=== PATIENT | male | born 1980 | race Caucasian/White ===

== ENCOUNTER 2016-11-21 13:47 | Emergency (ER) | payer OTHER ==
[~2016-11-21] VITALS: Ht 172.7 cm; Wt 68.0 kg
[2016-11-21 13:57] VITALS: Ht 172.7 cm; Wt 68.0 kg
[2016-11-21 14:28] LABS: BASO % 0.2 %; BASO ABS # 0.03 K/uL (0-0.2); COMPLETE YES; EOS % 1.8 %; HEMATOCRIT 43.3 % (42-52); IG% 0.5 %; LYMPH % 12.6 %; LYMPH ABS # 1.55 K/uL (1.2-3.4); MEAN CELL VOLUME 89.3 fL (80-100); MEAN CORPUSCULAR HEMOGLOBIN 31.8 pg (25-34); MEAN CORPUSCULAR HGB CONC 35.6 g/dl (32-36); MEAN PLATELET VOLUME 9.2 fL (7.4-10.4); MONO % 11.1 %; NEUT % 73.8 %; PLATELET COUNT 202 K/uL (130-400); RED BLOOD COUNT 4.85 M/uL (4.7-6.1); WHITE BLOOD COUNT 12.26 K/uL (4.8-10.8)
[2016-11-21 14:37] LABS: PROTHROMBIN TIME (PATIENT) 10.8 SECONDS (9.0-12.0)
[2016-11-21 14:51] LABS: BUN/CREATININE RATIO 16.2 (10-20); CREATININE 0.98 mg/dl (0.60-1.40); POTASSIUM 4.1 mmol/L (3.5-5.1)
[2016-11-21 15:00] LABS: CALCIUM 8.9 mg/dl (8.5-10.1)
[2016-11-21] MEDS ORDERED: WARFARIN SOD 5 MG TAB PO STA (15:40)
[2016-11-21] MEDS ORDERED: ENOX80IN SQ (15:53)
[2016-11-21] MEDS ORDERED: WARF5TAB90 PO (15:53)
[2016-11-21] MEDS ORDERED: ENOXAPARIN 80 MG/0.8 ML SYR SQ SCH (16:15)
[2016-11-21] MEDS ORDERED: ENOXAPARIN 1 MG/KG SQ STA (16:15)
--- NOTE | 2016-11-21 16:23 | Pharmacy Progress Note ---
ED Pharmacist Progress Note Date of Service: Nov 21, 2016. Met with patient in ER to provide education on Lovenox and Warfarin therapy. Reviewed: * Lovenox injection technique (site selection, site prep, dosage prep) * Signs and symptoms of excessive anticoagulation * Used syringe disposal * Need for compliance with injections along with continued warfarin use * Need for INR testing while on warfarin, ideally within the first 3-5 days * Avoidance of high risk activities which place him at risk for injury * Avoidance of OTC medications without first consulting h or Physician * Report any new medications to your Physician * Reviewed effects of dietary vit K on warfarin therapy
[2016-11-21 16:56] VITALS: BP 107/67; PULSE 85; TEMP 37.2; O2SAT 97
--- NOTE | 2016-11-21 18:21 | EMERGENCY ROOM VISIT NOTE ---
History Report prepared by Gianna: Jovana Eli Under the Supervision of: Dr. Vel Leslie D.O. First contact with patient: 14:02 Chief Complaint: ABNORMAL LABS Stated Complaint: BLOOD CLOT History of Present Illness The patient is a 35 year old male who presents to the Emergency Room for further evaluation of abnormal ultrasound results that the patient was made aware of earlier today. The patient's PCP ordered an ultrasound which revealed a DVT in the patient's left superficial femoral, popliteal, posterior tibial, anterior tibial, and peroneal veins. He states that he started to experience left leg pain 6 days ago and he first noticed the edema 2 days ago but he is unsure of when exactly it started. He denies chest pain, shortness of breath including shortness of breath with exertion, abdominal pain, nausea, vomiting, diarrhea, hematochezia, hematuria, and tingling or numbness in his leg. The patient states that he had a hiatal hernia repaired and a cholecystectomy done on November 11 in [place] at a [facility]. He states that he had the surgery done in [place] because it was cheaper. The patient traveled to [place] via a train. The trip lasted 2 days. He is not on any blood thinners. The patient denies any previous brain surgeries, infarcts, or hemorrhages. No previous blood clots. Denies any previous head bleeds, head surgery, or darker stools, bloody stools or any other bleeding issues. Source of History: patient Onset: earlier today Position: leg (left) Quality: other (abnormal ultrasound results) Timing: worsening Associated Symptoms: No chest pain, No SOB, No nausea, No vomiting, No abdominal pain, No hematochezia, No diarrhea, No urinary symptoms (hematuria), No numbness (in left leg) Note: left leg pain Review of Systems See HPI for pertinent positives & negatives. A total of 10 systems reviewed and were otherwise negative. Past Medical & Surgical Medical Problems: (1) Asthma Surgical Problems: (1) History of cholecystectomy (2) History of repair of hiatal hernia Family History No significant family history Social History Smoking Status: Never Smoker Smokeless Tobacco Use: No Alcohol Use: none Drug Use: none Marital Status: Housing Status: lives with significant other Occupation Status: employed Current/Historical Medications Scheduled Enoxaparin (Lovenox), 70 MG SQ Q12 Warfarin Sodium (Coumadin), 1 TAB PO DAILY Allergies Coded Allergies: No Known Allergies (Unverified , 11/21/16) Physical Exam Vital Signs Date Time Temp Pulse Resp B/P (MAP) Pulse Ox O2 Delivery O2 Flow Rate FiO2 11/21/16 16:56 37.2 85 18 107/67 97 11/21/16 16:31 107/67 11/21/16 16:30 85 18 97 11/21/16 16:01 109/71 11/21/16 16:00 86 18 97 11/21/16 15:30 94 20 117/65 96 11/21/16 15:09 79 11/21/16 15:02 86 18 109/67 98 Room Air 11/21/16 15:01 109/67 11/21/16 13:57 37.2 95 18 112/76 98 Room Air Physical Exam GENERAL: alert, sitting up in bed, well appearing, well nourished, no distress, non-toxic EYE EXAM: normal conjunctiva OROPHARYNX: no exudate, no erythema, lips, buccal mucosa, and tongue normal and mucous membranes are moist NECK: supple, no nuchal rigidity, no adenopathy, non-tender LUNGS: Clear to auscultation. Normal chest wall mechanics HEART: no murmurs, S1 normal and S2 normal ABDOMEN: abdomen soft, non-tender, normo-active bowel sounds, no masses, no rebound or guarding. BACK: Back is symmetrical on inspection and there is no deformity, no midline tenderness, no CVA tenderness. SKIN: no rashes and no bruising UPPER EXTREMITIES: upper extremities are grossly normal. LOWER EXTREMITIES: Left calf larger than right, thighs equal bilaterally, DPs 2/ 4 bilaterally, gross sensations intact. NEURO EXAM: Normal sensorium Medical Decision & Procedures Laboratory Results 11/21/16 14:17 Red Blood Count 4.85, Mean Corpuscular Volume 89.3, Mean Corpuscular Hemoglobin 31.8, Mean Corpuscular Hemoglobin Concent 35.6, Mean Platelet Volume 9.2, Neutrophils (%) (Auto) 73.8, Lymphocytes (%) (Auto) 12.6, Monocytes (%) (Auto) 11.1, Eosinophils (%) (Auto) 1.8, Basophils (%) (Auto) 0.2, Neutrophils # (Auto ) 9.04, Lymphocytes # (Auto) 1.55, Monocytes # (Auto) 1.36, Eosinophils # (Auto ) 0.22, Basophils # (Auto) 0.03 11/21/16 14:17 Test 11/21/16 14:17 White Blood Count 12.26 K/uL (4.8-10.8) Red Blood Count 4.85 M/uL (4.7-6.1) Hemoglobin 15.4 g/dL (14.0-18.0) Hematocrit 43.3 % (42-52) Mean Corpuscular Volume 89.3 fL (80-100) Mean Corpuscular Hemoglobin 31.8 pg (25-34) Mean Corpuscular Hemoglobin Concent 35.6 g/dl (32-36) Platelet Count 202 K/uL (130-400) Mean Platelet Volume 9.2 fL (7.4-10.4) Neutrophils (%) (Auto) 73.8 % Lymphocytes (%) (Auto) 12.6 % Monocytes (%) (Auto) 11.1 % Eosinophils (%) (Auto) 1.8 % Basophils (%) (Auto) 0.2 % Neutrophils # (Auto) 9.04 K/uL (1.4-6.5) Lymphocytes # (Auto) 1.55 K/uL (1.2-3.4) Monocytes # (Auto) 1.36 K/uL (0.11-0.59) Eosinophils # (Auto) 0.22 K/uL (0-0.5) Basophils # (Auto) 0.03 K/uL (0-0.2) RDW Standard Deviation 41.5 fL (36.4-46.3) RDW Coefficient of Variation 12.8 % (11.5-14.5) Immature Granulocyte % (Auto) 0.5 % Immature Granulocyte # (Auto) 0.06 K/uL (0.00-0.02) Prothrombin Time 10.8 SECONDS (9.0-12.0) Prothromb Time International Ratio 1.0 (0.9-1.1) Activated Partial Thromboplast Time 26.5 SECONDS (21.0-31.0) Partial Thromboplastin Ratio 1.0 Anion Gap 4.0 mmol/L (3-11) Est Creatinine Clear Calc Drug Dose 99.3 ml/min Estimated GFR () 113.7 Estimated GFR (Non- 98.1 BUN/Creatinine Ratio 16.2 (10-20) Calcium Level 8.9 mg/dl (8.5-10.1) Total Bilirubin 0.5 mg/dl (0.2-1) Direct Bilirubin 0.1 mg/dl (0-0.2) Aspartate Amino Transf (AST/SGOT) 14 U/L (15-37) Alanine Aminotransferase (ALT/SGPT) 23 U/L (12-78) Alkaline Phosphatase 88 U/L (45-117) Total Protein 7.3 gm/dl (6.4-8.2) Albumin 3.4 gm/dl (3.4-5.0) Laboratory results per my review. Medications Administered Medications (Trade) Dose Ordered Sig/Tres Route Start Time Stop Time Status Last Admin Dose Admin Warfarin Sodium (Coumadin Tab) 7.5 mg NOW STAT PO 11/21/16 15:40 11/21/16 15:41 DC 11/21/16 16:42 7.5 MG Enoxaparin Sodium (Lovenox Inj) 70 mg TODAY@1615 SQ 11/21/16 16:15 11/21/16 17:17 DC 11/21/16 16:42 70 MG ED Course ED COURSE: Vital signs were reviewed and showed normal. The patients medical record was reviewed The above diagnostic studies were performed and reviewed. ED treatments and interventions as stated above. 1409: The patient was evaluated in room B8. A complete history and physical examination was performed. 1431: I reviewed the patient's case with Dr. Ernst - Vascular Surgery. He recommends having the patient follow up as an outpatient. He said that the patient cannot receive thrombolytics because he has to be at least 1 month out from surgery before that. 1436: I reviewed the patient's case with Dr. Dexter - General Surgery. He said that with the patient being this far out from surgery, he should be fine to start anticoagulation as an outpatient. 1536: Upon reevaluation, the patient is doing well. I discussed my findings with the patient and he understands and agrees with the treatment plan. Based on the patients age, coexisting illnesses, exam and lab findings the decision to treat as an outpatient was made. The patient remained stable while under my care. The patient appeared well at the time of discharge. 1540: Ordered Coumadin Tab 7.5 mg PO 1543: I reviewed the patient's case with Dr. Stoner - Blood Banking and Transfusion Medicine. She will follow-up with him in the office. 1602: The patient is receiving his Lovenox shot and care management is going to setup a PCP and the Coumadin clinic for the patient. 1615: Ordered Enoxaparin Sodium 1 ea SQ Medical Decision Differential diagnoses includes but is not limited to DVT, musculoskeletal, infection, joint effusion, trauma, lymphedema, idiopathic, CHF. Medication Reconciliation: I attest that I have personally reviewed the patient' s current medication list. Blood pressure screening: Patient was found to have normal blood pressure on screening and does not require follow-up. Patient is a 35-year-old male who had a hiatal hernia repaired and gallbladder removed in [place] 10 days ago. He has no complaints with the exception of swelling in his left lower leg for which she has an ultrasound done. Ultrasound showed multiple DVTs some of which were occlusive. Nothing in the common femoral. No significant swelling. Pulses are intact. Patient has no other complaints. Denies chest pain shortness of breath with exertion. 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 Discussed with vascular surgery and Dr. Ernst notes he is not a candidate for intervention at this time. Recommends outpatient anticoagulation. Discussed with GEN surg and they agree it is safe to start anticoagulation as an outpatient. Patient does not have a PCP. Discussed with Dr. figueredo and patient will be followed up in the Coumadin clinic here. Referral was placed. Appointment Monday at 10 AM. Patient was given Lovenox here and he was instructed by our pharmacist. Also took Coumadin 7.5mg today. Instructed to take this dose tomorrow. He will then be placed on 5 mg daily and follow-up with Coumadin clinic. Care management will attempt to obtain a PCP close to his home as transportation is expensive. They were unsuccessful today as his first choice office was closed. Discharged with Coumadin and Lovenox. Patient had no bleeding risk factors as discussed in the history of present illness. Risk and benefits were explained. Stressed importance if any trauma to return immediately to the ED. Also stressed if any chest pain or shortness breath he should return immediately as this could be a blood clot in his lungs. CBC showed a mildly status of 12,000. BMP along with LFTs, bilirubin was unremarkable. INR was normal. Discussed with Pt concerning signs and symptoms to watch out for. Pt was instructed to follow up with their PCP and discussed with the patient their option to return to the ED at anytime for persistent or worsening symptoms. The appropriate anticipatory guidance and out-patient management, including indications for return to the emergency department, were explained at length to the patient and understood. Consults Time Called: 1429 Consulting Physician: Dr. Ernst - Vascular Surgery Returned Call: 1431 I reviewed the patient's case with Dr. Klever [facility]. He recommends having the patient follow up as an outpatient. He said that the patient cannot receive thrombolytics because he has to be at least 1 month out from surgery before that. Additional Consults: Time Called: 1433 Consulted Physician: Dr. Dexter - General Surgery Returned Call: 1434 Additional Comments: I reviewed the patient's case with Dr. Isacc Pablo General Surgery. He said that with the patient being this far out from surgery, he should be fine to start anticoagulation as an outpatient. Time Called: 1540 Consulted Physician: Dr. Stoner - Blood Banking and Transfusion Medicine Returned Call: 1546 Additional Comments: I reviewed the patient's case with Dr. Stoner - Blood Banking and Transfusion Medicine. She will follow-up with him in the office. Impression Primary Impression: DVT (deep venous thrombosis) Scribe Attestation The scribe's documentation has been prepared under my direction and personally reviewed by me in its entirety. I confirm that the note above accurately reflects all work, treatment, procedures, and medical decision making performed by me. Departure Information Dispostion Home / Self-Care Prescriptions Warfarin Sodium (COUMADIN) 5 Mg Tab 1 TAB PO DAILY for 30 Days, #30 TAB 1 Refill Prov: Vel Leslie, DO 11/21/16 Enoxaparin (LOVENOX) 80 Mg/0.8 Ml Inj 70 MG SQ Q12 for 5 Days, SYR Prov: Vel Leslie, DO 11/21/16 Referrals No Doctor, Assigned (PCP) Forms HOME CARE DOCUMENTATION FORM, IMPORTANT VISIT INFORMATION, WORK / SCHOOL INSTRUCTIONS Patient Instructions Coumadin, DVT, DVT Complications, Enoxaparin injection, My [employer] Additional Instructions Please follow up with your primary care doctor with in the next 24 hours. Any worsening of your symptoms, please return to the ED immediately. This includes chest pain, shortness of breath, passing out or any other concerning signs or symptoms from your standpoint. You must immediately return to the ER if you hit your head under any circumstances while taking blood thinners, start urinating blood, having dark tarry stools, bloody stools or any other concerning signs or symptoms. You must follow up with the coumadin clinic and the PCP to have blood work within 5 days. This has been set up for you by care management. For your second day of Coumadin which is tomorrow on 11/22/2016 please take 7.5 mg which is a tab and a half. For the remainder of the next 5 days he should only take 5 mg daily/1 tab daily. Problem Qualifiers Primary Impression: DVT (deep venous thrombosis) DVT location: lower extremity Affected thrombotic vein of extremity: other lower extremity vein Chronicity: acute Laterality: left Qualified Codes: I82.492 - Acute embolism and thrombosis of other specified deep vein of left lower extremity
[2016-11-25] MEDS ORDERED: PRED10TA PO (12:55)
[2016-11-28] MEDS ORDERED: WARF5TAB7 PO ×2 (09:35)
[2016-12-23] MEDS ORDERED: WARF7.5T4 PO (09:52)
== END 2016-11-21 17:00 | disposition home or self-care (01) ==
LOC: C.EDB 13:48
DX: I82.492 Acute embolism and thrombosis of other specified deep vein of left lower extremity (principal); J45.909 Unspecified asthma, uncomplicated; Z90.49 Acquired absence of other specified parts of digestive tract; Z98.890 Other specified postprocedural states